=== PATIENT | male | born 1955 | race Caucasian/White ===

== ENCOUNTER 2019-05-06 07:23 | Day surgery (SDC) | payer OTHER ==
[2019-05-06] MEDS ORDERED: PROPOFOL 60 ML (09:56)
== END 2019-05-06 10:42 | disposition home or self-care (01) ==
LOC: GIL 07:23
DX: Z12.11 Encounter for screening for malignant neoplasm of colon (principal); D12.3 Benign neoplasm of transverse colon; K64.8 Other hemorrhoids
CPT/HCPCS: 45380; 88305